=== PATIENT | female | born 1980 | race Caucasian/White ===

== ENCOUNTER 2022-06-17 06:07 | Day surgery (SDC) | payer OTHER ==
[~2022-06-17] VITALS: Ht 160 cm; Wt 91.6 kg
[2022-06-17 07:14] LABS: HCG,QUAL RESULT NEGATIVE (NEGATIVE)
[2022-06-17] MEDS ORDERED: CEFAZOLIN SOD 1 GM in D5W 50 ML IV ONE (08:00)
[2022-06-17] MEDS ORDERED: BUPIVACAINE /PF 0.25% 30 ML VIAL INJ ONE (08:06)
[2022-06-17] MEDS ORDERED: KETOROLAC TROMETHAMINE 30 MG VIAL IVP ONE (08:06)
[2022-06-17] MEDS ORDERED: ROCURONIUM BROMIDE 10 MG/ML (ZEMURON) IV ONE (08:06)
[2022-06-17] MEDS ORDERED: NS IRRIG SOLN 1000 ML IR ONE (08:06)
[2022-06-17] MEDS ORDERED: SEVOFLURANE 15 MIN GAS INH ONE (08:06)
[2022-06-17] MEDS ORDERED: NS 1000 ML IV.SOLN IV ONE (08:06)
[2022-06-17] MEDS ORDERED: CEFAZOLIN 1 GM IVPB PREMIX 50 ML IV ONE (08:06)
[2022-06-17] MEDS ORDERED: ONDANSETRON HCL 4 MG/2 ML VIAL IVP ONE (08:06)
[2022-06-17] MEDS ORDERED: PROPOFOL 200MG/ 20ML VIAL (DIPRIVAN) IV ONE (08:06)
[2022-06-17] MEDS ORDERED: OXYCODONE/ACETAMINOPHEN 5-325 TABLET PO PRN ×2 (11:15)
[2022-06-17] MEDS ORDERED: ONDANSETRON HCL 4 MG/2 ML VIAL IM PRN (11:15)
[2022-06-17] MEDS ORDERED: IBUPROFEN 800 MG TABLET PO PRN (11:15)
[2022-06-17] MEDS ORDERED: LR 1,000 ML IV SCH (11:30)
[2022-06-17] MEDS ORDERED: LABETALOL 100 MG/ 20ML VIAL IVP PRN (11:30)
[2022-06-17] MEDS ORDERED: ONDANSETRON HCL 4 MG/2 ML VIAL IVP PRN (11:30)
[2022-06-17] MEDS ORDERED: HYDROmorphone 1 MG/ML INJ. CARTRIDGE IVP PRN (11:30)
[2022-06-17] MEDS ORDERED: HYDROmorphone 1 MG/ML INJ. CARTRIDGE ONE ×2 (11:57→14:12)
[2022-06-17 12:30] VITALS: BP_SYST 135
[2022-06-17] MEDS ORDERED: OXYCODONE/ACETAMINOPHEN 5-325 TABLET ONE (14:37)
== END 2022-06-17 15:20 | disposition home or self-care (01) ==
LOC: SDS 06:07 → SMU 06:08 → SDS 15:20
PROVIDERS: ATTEND Obstetrics & Gynecology
DX: N93.9 Abnormal uterine and vaginal bleeding, unspecified (principal); C50.919 Malignant neoplasm of unspecified site of unspecified female breast; N72 Inflammatory disease of cervix uteri; D25.1 Intramural leiomyoma of uterus; E03.9 Hypothyroidism, unspecified; E28.2 Polycystic ovarian syndrome; Z90.49 Acquired absence of other specified parts of digestive tract; Z98.890 Other specified postprocedural states; Z79.899 Other long term (current) drug therapy; Z20.822 Contact with and (suspected) exposure to COVID-19
CPT/HCPCS: 36415 ×2; 58571; 84703; 86886; 86900; 86901; 93005; 88307; 87426; U0003; J3490; J0690; J1885; J2405; J2704; J1170; J7030; C1727; S2900; J7060